=== PATIENT | female | born 1935 | race Caucasian/White ===

== ENCOUNTER 2024-03-29 21:18 | Inpatient (IN) | payer MEDICARE, BC ==
[~2024-03-29] VITALS: Ht 167.6 cm; Wt 55.7 kg
[2024-03-29 21:00] VITALS: BP 122/61; TEMP 99.1; O2SAT 92
[2024-03-29] MEDS ORDERED: REMEDY ESSENTIAL ZINC PASTE 113 GM TOP PRN (22:00)
[2024-03-29] MEDS ORDERED: MIRALAX 17 GM POWD.PACK PO PRN (22:00)
[2024-03-29] MEDS ORDERED: ACETAMINOPHEN 500 MG TABLET PO PRN (22:00)
[2024-03-29] MEDS ORDERED: MISCELLANEOUS MED TP PRN (22:00)
[2024-03-29] MEDS ORDERED: MELATONIN 3 MG TABLET PO PRN (22:00)
[2024-03-29] MEDS: ENOXAPARIN SODIUM 40 MG/0.4 ML DISP.SYRIN SQ SCH (22:00)
[2024-03-29] MEDS ORDERED: MESA4ENE4 RC (23:26)
[2024-03-29] MEDS ORDERED: VIT1CAPS9 PO (23:26)
[2024-03-30 06:00] VITALS: BP 124/63; TEMP 98.4; O2SAT 94
[2024-03-30 06:07] VITALS: O2SAT 95
[2024-03-30] MEDS: PANTOPRAZOLE SODIUM 40 MG TABLET.DR PO SCH (06:37)
[2024-03-30] MEDS: FOLIC ACID 1 MG TABLET PO SCH (08:35)
[2024-03-30] MEDS: CHOLECALCIFEROL 1,000 UNIT TABLET PO SCH (08:35)
[2024-03-30] MEDS: CYANOCOBALAMIN 1,000 MCG TABLET PO SCH (08:35)
[2024-03-30] MEDS: CALCIUM CARB/VITAMIN D 600-400 MG TABLET PO SCH (08:35)
[2024-03-30] MEDS: ESCITALOPRAM OXALATE 10 MG TABLET PO SCH (08:35)
[2024-03-30] MEDS: CARVEDILOL 3.125 MG TABLET PO SCH (08:35)
[2024-03-30] MEDS: CARBAMIDE PEROXIDE OTIC DROP 15 ML BOTTLE EACH EAR SCH (08:37)
[2024-03-30] MEDS: FLUTICASONE PROP NASAL SPRAY 16 GM BOTTLE NS PRN (08:38)
[2024-03-30] MEDS: ERYTHROMYCIN 0.5% OPHT OINT 3.5 GM TUBE EACHEYE SCH (08:38)
[2024-03-30] MEDS: ENSURE WITH FIBER 237 ML LIQUID (CHOCOLATE) PO SCH (08:39)
[2024-03-30] MEDS: HYDROCODONE/APAP 10-325 MG TABLET PO PRN (11:31)
[2024-03-30] MEDS ORDERED: PANT40TA49 PO (11:49)
[2024-03-30] MEDS ORDERED: ATOR20TA PO (11:49)
[2024-03-30] MEDS ORDERED: ACET325T53 PO (11:49)
[2024-03-30] MEDS ORDERED: CHOL-35 PO (11:49)
[2024-03-30] MEDS ORDERED: ESCI10TA PO (11:49)
[2024-03-30] MEDS ORDERED: LACT-48 PO (11:49)
[2024-03-30] MEDS ORDERED: CYAN-51 PO (11:49)
[2024-03-30] MEDS ORDERED: CARB15DR63 OT (11:49)
[2024-03-30] MEDS ORDERED: POLY17PO4 PO (11:49)
[2024-03-30] MEDS ORDERED: CARV3.122 PO (11:49)
[2024-03-30] MEDS ORDERED: GABA-532 PO (11:49)
[2024-03-30] MEDS ORDERED: MAGN400O6 PO (11:49)
[2024-03-30] MEDS ORDERED: MESA10007 RC (11:49)
[2024-03-30] MEDS ORDERED: ZINC113P3 TP (11:49)
[2024-03-30] MEDS ORDERED: ENOX40DI SQ (11:49)
[2024-03-30] MEDS ORDERED: CALC-959 PO (11:49)
[2024-03-30] MEDS ORDERED: HYDR-3980 PO (11:49)
[2024-03-30] MEDS ORDERED: FLUT16SP16 NS (11:58)
[2024-03-30] MEDS ORDERED: ERYT3.5O24 EACHEYE (11:58)
[2024-03-30] MEDS ORDERED: DICL100G31 TP (11:58)
[2024-03-30] MEDS ORDERED: IBUP-76 PO (11:58)
[2024-03-30] MEDS ORDERED: MELA5TAB PO (11:58)
[2024-03-30] MEDS ORDERED: MULT-594 PO (11:58)
[2024-03-30 15:21] VITALS: BP 112/57; TEMP 97.3; O2SAT 94
[2024-03-30 16:23] VITALS: O2SAT 96
[2024-03-30 16:33] VITALS: O2SAT 97
[2024-03-30 20:00] VITALS: BP 132/54; TEMP 98; O2SAT 97
[2024-03-30] MEDS: ATORVASTATIN 20 MG TABLET PO SCH (20:53)
[2024-03-30] MEDS: GABAPENTIN 100 MG CAPSULE PO SCH (20:53)
[2024-03-30] MEDS: ENOXAPARIN SODIUM 40 MG/0.4 ML DISP.SYRIN SQ SCH (20:58)
[2024-03-31 05:11] VITALS: O2SAT 97
[2024-03-31 06:00] VITALS: BP 122/61; TEMP 98.4; O2SAT 99
[2024-03-31 13:32] VITALS: O2SAT 97
[2024-03-31 15:08] VITALS: BP 120/70; TEMP 97.6; O2SAT 93
[2024-03-31 21:07] VITALS: TEMP 100.3
[2024-04-01 07:02] VITALS: TEMP 98
[2024-04-01 15:50] VITALS: BP 109/52; TEMP 98.2; O2SAT 91
[2024-04-01 20:00] VITALS: BP 116/51; TEMP 98.4; O2SAT 92
[2024-04-02 06:00] VITALS: BP 123/67; TEMP 98.3; O2SAT 93
[2024-04-02 15:48] VITALS: BP 102/52; TEMP 97.6; O2SAT 94
[2024-04-02 20:54] VITALS: BP 111/56; TEMP 98.2; O2SAT 95
[2024-04-02] MEDS: ACETAMINOPHEN 500 MG TABLET PO PRN (21:22)
[2024-04-03 06:06] VITALS: BP 113/60; TEMP 98.3; O2SAT 96
[2024-04-03 16:22] VITALS: BP 126/58; TEMP 97.6; O2SAT 93
[2024-04-03 20:29] VITALS: BP 119/62; TEMP 98; O2SAT 93
[2024-04-04 04:02] VITALS: BP 125/61; TEMP 98.1; O2SAT 93
[2024-04-04 08:16] LABS: ALANINE AMINOTRANSFERASE 11 U/L (14-59); ALKALINE PHOSPHATASE 105 U/L (50-136); ASPARTATE AMINOTRANSFERASE 9 U/L (15-37); BILIRUBIN,TOTAL 0.7 mg/dL (0.2-1.0); CALCIUM 8.2 mg/dL (8.5-10.1); CARBON DIOXIDE 31 mmol/L (21-32); CHLORIDE 107 mmol/L (98-107); CREATININE 0.6 mg/dL (0.6-1.3); GLUCOSE 92 mg/dL (74-106); POTASSIUM 3.7 mmol/L (3.5-5.1); SODIUM SERUM 141 mmol/L (136-145); TOTAL PROTEIN, SERUM 5.2 g/dL (6.4-8.2); UREA NITROGEN, BLOOD 16 mg/dL (7-18)
[2024-04-04 08:17] LABS: BASOPHILS % (AUTO) 0.3 % (0.0-2.0); EOSINOPHILS # (AUTO) 0.1 K/uL (0.0-0.7); EOSINOPHILS % (AUTO) 1.5 % (0.0-7.0); HEMATOCRIT 26.5 % (31.2-41.9); HEMOGLOBIN 8.6 g/dL (10.9-14.3); LYMPHOCYTES # (AUTO) 0.8 K/uL (0.8-4.8); LYMPHOCYTES % (AUTO) 10.1 % (20.5-51.5); MEAN CORPUSCULAR HEMOGLOBIN 28.5 uug (24.7-32.8); MEAN CORPUSCULAR HGB CONC 33 g/dL (32.3-35.6); MEAN CORPUSCULAR VOLUME 87.6 fL (75.5-95.3); MONOCYTES # (AUTO) 0.7 K/uL (0.1-1.30); MONOCYTES % (AUTO) 8.8 % (0.0-11.0); NEUTROPHILS # (AUTO) 6.2 K/uL (1.8-8.9); NEUTROPHILS % (AUTO) 79.3 % (38.5-71.5); PLATELET COUNT (AUTO) 243 K/uL (179-408); RED BLOOD CELL COUNT(AUTO) 3.02 MIL/uL (3.63-4.92); RED CELL DISTRIBUTION WIDTH 15.9 % (12.3-17.7); WHITE BLOOD COUNT (AUTO) 7.9 K/uL (3.8-11.8)
[2024-04-04 08:24] LABS: DIFFERENTIAL COMMENT 1
[2024-04-04 08:32] LABS: ALBUMIN 1.4 g/dL (3.4-5.0)
[2024-04-04 15:05] VITALS: BP 108/48; TEMP 97.4; O2SAT 93
[2024-04-04 20:12] VITALS: BP 114/53; TEMP 98.1; O2SAT 92
[2024-04-05 06:43] VITALS: BP 101/62; TEMP 98.2; O2SAT 94
[2024-04-05 08:27] VITALS: BP 116/57; TEMP 97.3; O2SAT 94
[2024-04-05 16:05] VITALS: BP 111/60; TEMP 97.7; O2SAT 95
[2024-04-05 19:44] VITALS: BP 107/45; TEMP 98.1; O2SAT 92
[2024-04-06 04:36] VITALS: BP 122/62; TEMP 98; O2SAT 93
[2024-04-06 16:21] VITALS: BP 111/54; TEMP 97.9; O2SAT 95
[2024-04-06 19:57] VITALS: BP 103/49; TEMP 98; O2SAT 93
[2024-04-07 06:00] VITALS: BP 137/66; TEMP 97.4; O2SAT 95
[2024-04-07 15:08] VITALS: BP 142/57; TEMP 98.1; O2SAT 95
[2024-04-07 20:46] VITALS: BP 102/40; TEMP 98.6; O2SAT 92
[2024-04-08 05:20] VITALS: BP 117/56; TEMP 97.8; O2SAT 92
[2024-04-08 16:00] VITALS: BP 104/47; TEMP 97.7; O2SAT 94
[2024-04-08 20:21] VITALS: BP 99/71; TEMP 97.7; O2SAT 92
[2024-04-09 06:49] VITALS: BP 120/56; TEMP 97.4; O2SAT 92
[2024-04-09] MEDS: IBUPROFEN 200 MG TABLET PO PRN (14:08)
[2024-04-09 15:48] VITALS: BP 106/43; TEMP 98; O2SAT 100
[2024-04-09] MEDS: PROTEIN SUPPLEMENT (PROSTAT) 30 ML LIQUID PO SCH (16:16)
[2024-04-09 20:00] VITALS: BP 104/51; TEMP 98.1; O2SAT 94
[2024-04-10 06:00] VITALS: BP 104/54; TEMP 98.3; O2SAT 92
[2024-04-10 15:57] VITALS: BP 101/48; TEMP 98; O2SAT 92
[2024-04-10 20:20] VITALS: BP 110/57; TEMP 98.2; O2SAT 94
[2024-04-11 05:46] VITALS: BP 112/65; TEMP 97.8; O2SAT 93
[2024-04-11 07:10] LABS: BASOPHILS % (AUTO) 0.4 % (0.0-2.0); EOSINOPHILS # (AUTO) 0.1 K/uL (0.0-0.7); EOSINOPHILS % (AUTO) 1.6 % (0.0-7.0); HEMATOCRIT 25.9 % (31.2-41.9); HEMOGLOBIN 8.6 g/dL (10.9-14.3); LYMPHOCYTES # (AUTO) 0.9 K/uL (0.8-4.8); LYMPHOCYTES % (AUTO) 14.4 % (20.5-51.5); MEAN CORPUSCULAR HEMOGLOBIN 29.4 uug (24.7-32.8); MEAN CORPUSCULAR HGB CONC 33 g/dL (32.3-35.6); MEAN CORPUSCULAR VOLUME 88.5 fL (75.5-95.3); MONOCYTES # (AUTO) 0.6 K/uL (0.1-1.30); MONOCYTES % (AUTO) 10.2 % (0.0-11.0); NEUTROPHILS # (AUTO) 4.6 K/uL (1.8-8.9); NEUTROPHILS % (AUTO) 73.4 % (38.5-71.5); PLATELET COUNT (AUTO) 217 K/uL (179-408); RED BLOOD CELL COUNT(AUTO) 2.92 MIL/uL (3.63-4.92); RED CELL DISTRIBUTION WIDTH 17.6 % (12.3-17.7); WHITE BLOOD COUNT (AUTO) 6.3 K/uL (3.8-11.8)
[2024-04-11 07:24] LABS: DIFFERENTIAL COMMENT 1
[2024-04-11 07:31] LABS: IRON, SERUM 19 ug/dL (50-175)
[2024-04-11 07:55] LABS: ALANINE AMINOTRANSFERASE 9 U/L (14-59); ALKALINE PHOSPHATASE 103 U/L (50-136); ASPARTATE AMINOTRANSFERASE 7 U/L (15-37); BILIRUBIN,TOTAL 0.5 mg/dL (0.2-1.0); CARBON DIOXIDE 29 mmol/L (21-32); CHLORIDE 106 mmol/L (98-107); CHOLESTEROL 75 mg/dL (<200); CREATININE 0.5 mg/dL (0.6-1.3); GLUCOSE 92 mg/dL (74-106); HDL CHOLESTEROL 40 mg/dL (40-60); MAGNESIUM 1.9 mg/dL (1.8-2.4); POTASSIUM 3.6 mmol/L (3.5-5.1); SODIUM SERUM 139 mmol/L (136-145); TOTAL PROTEIN, SERUM 5.2 g/dL (6.4-8.2); TRIGLYCERIDES 95 MG/DL (30-150); UREA NITROGEN, BLOOD 9 mg/dL (7-18)
[2024-04-11 08:05] LABS: ALBUMIN 1.4 g/dL (3.4-5.0)
[2024-04-11 08:30] LABS: THYROID STIMULATING HORMONE 6.042 mIU/mL (0.358-3.740)
[2024-04-11 15:56] VITALS: BP 130/64; TEMP 97.7; O2SAT 93
[2024-04-11 20:03] VITALS: BP 128/86; TEMP 98.2; O2SAT 96
[2024-04-11] MEDS: PIPERACILLIN SODIUM/TAZOBACTAM 3.375 G in IV DEXTROSE 5% 100 ML IV SCH (21:37)
[2024-04-11] MEDS ORDERED: PIPERACILLIN SODIUM/TAZOBACTAM 3.375 G in IV DEXTROSE 5% 50 ML IV SCH (22:00)
[2024-04-12 04:00] VITALS: BP 125/57; TEMP 98.3; O2SAT 93
[2024-04-12 08:01] VITALS: BP 117/60; TEMP 98.1; O2SAT 95
[2024-04-12 15:57] VITALS: BP 122/67; TEMP 97.9; O2SAT 95
[2024-04-12 20:07] VITALS: BP 110/50; TEMP 98; O2SAT 95
[2024-04-13 06:20] VITALS: BP 119/56; TEMP 98.1; O2SAT 94
[2024-04-13 07:08] LABS: BASOPHILS % (AUTO) 0.3 % (0.0-2.0); EOSINOPHILS # (AUTO) 0.1 K/uL (0.0-0.7); EOSINOPHILS % (AUTO) 1.4 % (0.0-7.0); HEMOGLOBIN 9.4 g/dL (10.9-14.3); LYMPHOCYTES # (AUTO) 0.5 K/uL (0.8-4.8); LYMPHOCYTES % (AUTO) 7.2 % (20.5-51.5); MEAN CORPUSCULAR HEMOGLOBIN 28.9 uug (24.7-32.8); MEAN CORPUSCULAR HGB CONC 33 g/dL (32.3-35.6); MEAN CORPUSCULAR VOLUME 88.7 fL (75.5-95.3); MONOCYTES # (AUTO) 0.6 K/uL (0.1-1.30); NEUTROPHILS # (AUTO) 5.4 K/uL (1.8-8.9); NEUTROPHILS % (AUTO) 82.1 % (38.5-71.5); PLATELET COUNT (AUTO) 214 K/uL (179-408); RED BLOOD CELL COUNT(AUTO) 3.27 MIL/uL (3.63-4.92); RED CELL DISTRIBUTION WIDTH 17.7 % (12.3-17.7); WHITE BLOOD COUNT (AUTO) 6.6 K/uL (3.8-11.8)
[2024-04-13 07:20] LABS: DIFFERENTIAL COMMENT 1
[2024-04-13 07:25] LABS: ALANINE AMINOTRANSFERASE 11 U/L (14-59); ALBUMIN 1.6 g/dL (3.4-5.0); ALKALINE PHOSPHATASE 108 U/L (50-136); ASPARTATE AMINOTRANSFERASE 8 U/L (15-37); BILIRUBIN,TOTAL 0.6 mg/dL (0.2-1.0); CALCIUM 8.4 mg/dL (8.5-10.1); CARBON DIOXIDE 30 mmol/L (21-32); CHLORIDE 107 mmol/L (98-107); CREATININE 0.7 mg/dL (0.6-1.3); GLUCOSE 96 mg/dL (74-106); MAGNESIUM 1.9 mg/dL (1.8-2.4); POTASSIUM 3.2 mmol/L (3.5-5.1); SODIUM SERUM 142 mmol/L (136-145); TOTAL PROTEIN, SERUM 5.7 g/dL (6.4-8.2); UREA NITROGEN, BLOOD 10 mg/dL (7-18)
[2024-04-13] MEDS: POTASSIUM CHLORIDE 20 MEQ TAB.PRT.SR PO ONE (12:02)
[2024-04-13 16:00] VITALS: BP 110/57; TEMP 98.4; O2SAT 97
[2024-04-13] MEDS ORDERED: PIPE3.379 IV (17:47)
[2024-04-15] MEDS ORDERED: HYDR25SU13 RC (17:11)
[2024-04-15] MEDS ORDERED: Mesalamine PO (17:11)
[2024-04-15] MEDS ORDERED: BETA1TAB19 PO (17:11)
[2024-04-15] MEDS ORDERED: ACID1TAB4 PO (17:11)
[2024-04-15] MEDS ORDERED: MELA3TAB41 PO (17:11)
[2024-04-15] MEDS ORDERED: HYDR28.316 TP (17:11)
[2024-04-15] MEDS ORDERED: Lactose-Free Food PO (17:11)
[2024-04-15] MEDS ORDERED: ASPI-1101 PO (17:11)
[2024-04-15] MEDS ORDERED: PANT40TA49 PO (17:11)
[2024-04-15] MEDS ORDERED: FERR325T28 PO (17:11)
[2024-04-15] MEDS ORDERED: PROT30LI PO (17:11)
== END 2024-04-13 15:49 | disposition short-term general hospital (02) | DRG 559 ==
LOC: EDBD 21:18
PROVIDERS: ADMIT Physical Medicine & Rehabilitation Pain Medicine; ATTEND Physical Medicine & Rehabilitation Pain Medicine
DX: Z47.1 Aftercare following joint replacement surgery (principal); E43 Unspecified severe protein-calorie malnutrition; G93.41 Metabolic encephalopathy; D68.59 Other primary thrombophilia; F03.93 Unspecified dementia, unspecified severity, with mood disturbance; I50.30 Unspecified diastolic (congestive) heart failure; Z96.642 Presence of left artificial hip joint; E78.5 Hyperlipidemia, unspecified; M81.0 Age-related osteoporosis without current pathological fracture; Z91.81 History of falling; D50.9 Iron deficiency anemia, unspecified; D72.829 Elevated white blood cell count, unspecified; E03.9 Hypothyroidism, unspecified; E88.09 Other disorders of plasma-protein metabolism, not elsewhere classified; F32.A Depression, unspecified; I11.0 Hypertensive heart disease with heart failure; Z96.643 Presence of artificial hip joint, bilateral; M41.9 Scoliosis, unspecified; K64.4 Residual hemorrhoidal skin tags; M19.90 Unspecified osteoarthritis, unspecified site; K21.9 Gastro-esophageal reflux disease without esophagitis
CPT/HCPCS: 36415; 71046; 73501; 82378; 83550; 83735; 84100; 84443; 85025; A4663; A6209; A6213; A9150; J1650; J2543; J3535

== ENCOUNTER 2024-04-13 16:25 | Inpatient (IN) | payer MEDICARE, BC ==
[~2024-04-13] VITALS: Ht 167.6 cm; Wt 55.3 kg
[~2024-04-13 16:25] MED LIST: ACET325T53 PO; ATOR20TA PO; CALC-959 PO; CARB15DR63 OT; CARV3.122 PO; CHOL-35 PO; CYAN-51 PO; DICL100G31 TP; ENOX40DI SQ; ERYT3.5O24 EACHEYE; ESCI10TA PO; FLUT16SP16 NS; GABA-532 PO; HYDR-3980 PO; IBUP-76 PO; LACT-48 PO; MAGN400O6 PO; MELA5TAB PO; MESA10007 RC; MULT-594 PO; PANT40TA49 PO; POLY17PO4 PO; VIT1CAPS9 PO; ZINC113P3 TP
[2024-04-13] MEDS ORDERED: PIPE3.379 IV (17:47)
[2024-04-13] MEDS ORDERED: ACETAMINOPHEN 325 MG TABLET-SA PATIENTS-PAIN ONLY PO PRN (18:15)
[2024-04-13] MEDS ORDERED: MAGNESIUM HYDROXIDE 30 ML LIQUID UDC PO PRN (18:15)
[2024-04-13] MEDS ORDERED: HYDROCODONE/APAP 10-325 MG TABLET PO PRN (18:15)
[2024-04-13] MEDS ORDERED: MIRALAX 17 GM POWD.PACK PO PRN (18:15)
[2024-04-13] MEDS ORDERED: ACETAMINOPHEN 325 MG TABLET PO PRN ×2 (18:30→18:45)
[2024-04-13] MEDS ORDERED: ONDANSETRON 4 MG/2 ML VIAL IV PRN (18:30)
[2024-04-13 20:00] VITALS: BP 110/50; TEMP 98.4; O2SAT 92
[2024-04-13] MEDS ORDERED: MELATONIN 7.5 MG PO SCH (21:00)
[2024-04-13] MEDS: PIPERACILLIN SODIUM/TAZOBACTAM 3.375 G in IV DEXTROSE 5% 100 ML IV SCH (21:09)
[2024-04-13] MEDS: GABAPENTIN 100 MG CAPSULE PO SCH (21:10)
[2024-04-13] MEDS: MELATONIN 3 MG TABLET PO SCH (21:10)
[2024-04-13] MEDS: ATORVASTATIN 20 MG TABLET PO SCH (21:11)
[2024-04-13] MEDS: ACIDOPHILUS/BULGARICUS CHEW TAB PO SCH (21:12)
[2024-04-13] MEDS ORDERED: PIPERACILLIN SODIUM/TAZOBACTAM 3.375 G in IV DEXTROSE 5% 50 ML IV SCH (22:00)
[2024-04-14 06:00] VITALS: BP 96/48; TEMP 97.7; O2SAT 94
[2024-04-14 07:24] LABS: BASOPHILS % (AUTO) 0.3 % (0.0-2.0); EOSINOPHILS # (AUTO) 0.1 K/uL (0.0-0.7); EOSINOPHILS % (AUTO) 2.2 % (0.0-7.0); HEMATOCRIT 26.5 % (31.2-41.9); HEMOGLOBIN 8.8 g/dL (10.9-14.3); LYMPHOCYTES # (AUTO) 0.8 K/uL (0.8-4.8); LYMPHOCYTES % (AUTO) 15.2 % (20.5-51.5); MEAN CORPUSCULAR HEMOGLOBIN 29.4 uug (24.7-32.8); MEAN CORPUSCULAR HGB CONC 33 g/dL (32.3-35.6); MEAN CORPUSCULAR VOLUME 88.5 fL (75.5-95.3); MONOCYTES # (AUTO) 0.7 K/uL (0.1-1.30); MONOCYTES % (AUTO) 12.4 % (0.0-11.0); NEUTROPHILS # (AUTO) 3.8 K/uL (1.8-8.9); NEUTROPHILS % (AUTO) 69.9 % (38.5-71.5); PLATELET COUNT (AUTO) 197 K/uL (179-408); RED CELL DISTRIBUTION WIDTH 18.4 % (12.3-17.7); WHITE BLOOD COUNT (AUTO) 5.4 K/uL (3.8-11.8)
[2024-04-14 07:28] LABS: DIFFERENTIAL COMMENT 1
[2024-04-14 07:44] LABS: ALANINE AMINOTRANSFERASE 7 U/L (14-59); ALKALINE PHOSPHATASE 104 U/L (50-136); ASPARTATE AMINOTRANSFERASE 8 U/L (15-37); BILIRUBIN,TOTAL 0.5 mg/dL (0.2-1.0); CALCIUM 8.3 mg/dL (8.5-10.1); CARBON DIOXIDE 30 mmol/L (21-32); CHLORIDE 102 mmol/L (98-107); CREATININE 0.6 mg/dL (0.6-1.3); GLUCOSE 85 mg/dL (74-106); PHOSPHOROUS 2.9 mg/dL (2.5-4.9); POTASSIUM 3.5 mmol/L (3.5-5.1); SODIUM SERUM 134 mmol/L (136-145); UREA NITROGEN, BLOOD 10 mg/dL (7-18)
[2024-04-14 07:47] LABS: ALBUMIN 1.4 g/dL (3.4-5.0)
[2024-04-14 08:00] VITALS: BP 108/60; TEMP 97.4; O2SAT 96
[2024-04-14] MEDS ORDERED: Medication Not On Formulary EA (Multivitamins (Multivitamin) 1 EACH) PO SCH (09:00)
[2024-04-14] MEDS: CARVEDILOL 3.125 MG TABLET PO SCH (09:00)
[2024-04-14] MEDS: ENOXAPARIN SODIUM 40 MG/0.4 ML DISP.SYRIN SQ SCH (09:00)
[2024-04-14] MEDS: ENSURE ENLIVE (VAN) 240 ML LIQUID PO SCH (09:00)
[2024-04-14] MEDS ORDERED: Medication Not On Formulary EA (Vit A/Vit C/Vit E/Zinc/Copper (Preservision Areds Softge PO SCH (09:00)
[2024-04-14] MEDS: BETA CAROTENE/VIT C & E/MIN TABLET PO SCH (10:19)
[2024-04-14] MEDS: ESCITALOPRAM OXALATE 10 MG TABLET PO SCH (10:20)
[2024-04-14] MEDS: CYANOCOBALAMIN 1,000 MCG TABLET PO SCH (10:20)
[2024-04-14] MEDS: CHOLECALCIFEROL 1,000 UNIT TABLET PO SCH (10:20)
[2024-04-14] MEDS: CALCIUM CARB/VITAMIN D 600-400 MG TABLET PO SCH (10:20)
[2024-04-14] MEDS: MULTIVITAMINS,THERAPEUTIC TABLET PO SCH (10:21)
[2024-04-14] MEDS: PANTOPRAZOLE SODIUM 40 MG TABLET.DR PO SCH (10:24)
[2024-04-14] MEDS: POTASSIUM CHLORIDE 20 MEQ TAB.PRT.SR PO ONE (10:24)
[2024-04-14 11:20] VITALS: BP 107/52; TEMP 97.6; O2SAT 96
[2024-04-14 16:36] VITALS: BP 103/50; TEMP 97.9; O2SAT 95
[2024-04-14 19:00] VITALS: BP 116/56; TEMP 97.8; O2SAT 93
[2024-04-15 06:00] VITALS: BP 116/57; TEMP 97.6; O2SAT 97
[2024-04-15 10:34] LABS: BASOPHILS % (AUTO) 0.2 % (0.0-2.0); EOSINOPHILS # (AUTO) 0.1 K/uL (0.0-0.7); EOSINOPHILS % (AUTO) 2.2 % (0.0-7.0); HEMATOCRIT 26.9 % (31.2-41.9); HEMOGLOBIN 8.7 g/dL (10.9-14.3); LYMPHOCYTES # (AUTO) 0.6 K/uL (0.8-4.8); MEAN CORPUSCULAR HEMOGLOBIN 29.1 uug (24.7-32.8); MEAN CORPUSCULAR HGB CONC 32 g/dL (32.3-35.6); MEAN CORPUSCULAR VOLUME 89.8 fL (75.5-95.3); MONOCYTES # (AUTO) 0.6 K/uL (0.1-1.30); MONOCYTES % (AUTO) 10.2 % (0.0-11.0); NEUTROPHILS # (AUTO) 4.5 K/uL (1.8-8.9); NEUTROPHILS % (AUTO) 77.4 % (38.5-71.5); PLATELET COUNT (AUTO) 223 K/uL (179-408); RED CELL DISTRIBUTION WIDTH 18.5 % (12.3-17.7); WHITE BLOOD COUNT (AUTO) 5.8 K/uL (3.8-11.8)
[2024-04-15 10:42] LABS: DIFFERENTIAL COMMENT 1
[2024-04-15 10:51] LABS: ALANINE AMINOTRANSFERASE < 6 U/L (14-59); ALKALINE PHOSPHATASE 108 U/L (50-136); ASPARTATE AMINOTRANSFERASE 6 U/L (15-37); BILIRUBIN,TOTAL 0.4 mg/dL (0.2-1.0); CALCIUM 8.4 mg/dL (8.5-10.1); CARBON DIOXIDE 28 mmol/L (21-32); CHLORIDE 103 mmol/L (98-107); CREATININE 0.6 mg/dL (0.6-1.3); GLUCOSE 129 mg/dL (74-106); MAGNESIUM 1.8 mg/dL (1.8-2.4); POTASSIUM 3.7 mmol/L (3.5-5.1); SODIUM SERUM 137 mmol/L (136-145); TOTAL PROTEIN, SERUM 5.2 g/dL (6.4-8.2); UREA NITROGEN, BLOOD 8 mg/dL (7-18)
[2024-04-15 11:22] LABS: C-REACTIVE PROTEIN 3.47 mg/dL (0.00-0.30)
[2024-04-15 11:25] LABS: ALBUMIN 1.4 g/dL (3.4-5.0)
[2024-04-15 12:54] VITALS: BP 107/52; TEMP 97.9; O2SAT 96
[2024-04-15] MEDS ORDERED: PRAMOXIN/MINERAL OIL/ZNIC OINT 28.3 GM TUBE RC SCH (13:45)
[2024-04-15] MEDS: FERROUS SULFATE 325 MG TABEC PO SCH (14:26)
[2024-04-15] MEDS: MESALAMINE 400 MG CAPSULE.DR PO SCH (15:53)
[2024-04-15] MEDS: PROTEIN SUPPLEMENT (PROSTAT) 30 ML LIQUID PO SCH (15:53)
[2024-04-15 16:01] VITALS: BP 104/50; TEMP 97.7; O2SAT 96
[2024-04-15 17:11] VITALS: BP 109/59
[2024-04-15] MEDS ORDERED: Mesalamine PO (17:11)
[2024-04-15] MEDS ORDERED: HYDR25SU13 RC (17:11)
[2024-04-15] MEDS ORDERED: PROT30LI PO (17:11)
[2024-04-15] MEDS ORDERED: Lactose-Free Food PO (17:11)
[2024-04-15] MEDS ORDERED: HYDR28.316 TP (17:11)
[2024-04-15] MEDS ORDERED: MELA3TAB41 PO (17:11)
[2024-04-15] MEDS ORDERED: ASPI-1101 PO (17:11)
[2024-04-15] MEDS ORDERED: ACID1TAB4 PO (17:11)
[2024-04-15] MEDS ORDERED: BETA1TAB19 PO (17:11)
[2024-04-15] MEDS ORDERED: FERR325T28 PO (17:11)
[2024-04-15] MEDS ORDERED: PANT40TA49 PO (17:11)
[2024-04-15] MEDS ORDERED: HYDROCORTISONE RECTAL SUPP 25 MG EACH RC SCH (21:00)
== END 2024-04-15 20:30 | DRG 371 ==
LOC: MEDSURG3 16:25
PROVIDERS: ADMIT Internal Medicine; ATTEND Internal Medicine
DX: A04.9 Bacterial intestinal infection, unspecified (principal); E43 Unspecified severe protein-calorie malnutrition; D68.59 Other primary thrombophilia; C18.9 Malignant neoplasm of colon, unspecified; K64.4 Residual hemorrhoidal skin tags; K60.3 Anal fistula; D50.0 Iron deficiency anemia secondary to blood loss (chronic); E78.5 Hyperlipidemia, unspecified; E03.9 Hypothyroidism, unspecified; F03.90 Unspecified dementia, unspecified severity, without behavioral disturbance, psychotic disturbance, mood disturbance, and anxiety; I10 Essential (primary) hypertension; E88.09 Other disorders of plasma-protein metabolism, not elsewhere classified; K44.9 Diaphragmatic hernia without obstruction or gangrene; Z96.643 Presence of artificial hip joint, bilateral; M51.36 Other intervertebral disc degeneration, lumbar region; M41.55 Other secondary scoliosis, thoracolumbar region; Z74.09 Other reduced mobility; Z79.899 Other long term (current) drug therapy; S72.002D Fracture of unspecified part of neck of left femur, subsequent encounter for closed fracture with routine healing; W19.XXXD Unspecified fall, subsequent encounter
CPT/HCPCS: 36415; 83735; 84100; 85025; 86140; A6213; G0378; J1650; J2543